=== PATIENT | female | born 1950 | race Caucasian/White ===

== ENCOUNTER 2018-10-12 12:49 | Emergency (ER) | payer MEDICARE ==
[~2018-10-12] VITALS: Ht 162.6 cm; Wt 65.8 kg
[2018-10-12] MEDS ORDERED: COZAAR 25 MG TA25 M2 PO (13:05)
[2018-10-12] MEDS ORDERED: NORCO 10-325 T1 EACH PO (13:05)
[2018-10-12 13:16] LABS: URINE BILIRUBIN NEGATIVE (Negative); URINE BLOOD NEGATIVE (Negative); URINE CLARITY CLEAR; URINE COLOR YELLOW; URINE GLUCOSE-RANDOM NEGATIVE (Negative); URINE KETONES NEGATIVE (Negative); URINE LEUKOCYTES-REFLEX NEGATIVE (Negative); URINE NITRITE-REFLEX NEGATIVE (Negative); URINE PROTEIN NEGATIVE (Negative); URINE SPECIFIC GRAVITY <= 1.005 (1.005-1.030); URINE UROBILINOGEN 0.2 E.U./dl (0.2-1.0)
[2018-10-12 13:28] LABS: ABSOLUTE BASOPHILS 0.1 thou/uL (0.0-0.2); ABSOLUTE EOSINOPHILS 0.1 thou/uL (0.0-0.7); ABSOLUTE LYMPHOCYTES 2.1 thou/uL (0.8-5.3); ABSOLUTE MONOCYTES 0.5 thou/uL (0.0-1.2); ABSOLUTE NEUTROPHILS 3.6 thou/uL (1.6-8.1); BASOPHILS 1.1 %; HEMATOCRIT 39.9 % (37.0-47.0); HEMOGLOBIN 13.3 gm/dL (12.0-15.0); MCH 29.4 pg (26.0-34.0); MCHC 33.2 g/dL (28.0-37.0); MCV 88.7 fL (80.0-100.0); MONOCYTES 7.7 %; MPV 7.8 fl. (7.2-11.1); NUCLEATED RBCS 0 /100WBC; PLATELET COUNT* 271 thou/uL (150-400); POLYS 57.2 %; RDW-CV 13.1 % (10.5-14.5); WBC 6.3 thou/uL (4.0-11.0)
[2018-10-12 13:56] LABS: ALBUMIN 3.7 g/dL (3.4-5.0); ALKALINE PHOSPHATASE 79 U/L (46-116); ANION GAP 7 mmol/L (7-16); BUN 15 mg/dL (7-18); CALCIUM 9.2 mg/dL (8.5-10.1); CHLORIDE 101 mmol/L (98-107); CO2 29 mmol/L (21-32); CREATININE 1.1 mg/dL (0.6-1.3); GLUCOSE 89 mg/dL (70-99); POTASSIUM 4.2 mmol/L (3.5-5.1); SGOT 19 U/L (15-37); SGPT 21 U/L (30-65); SODIUM 137 mmol/L (136-145); TOTAL BILIRUBIN 0.5 mg/dL (<0.1-1.0); TOTAL PROTEIN 7.7 g/dL (6.4-8.2); TROPONIN-I LEVEL <0.06 ng/mL (<0.06)
[2018-10-12] MEDS ORDERED: FLEXERIL PO (14:16)
[2018-10-12] MEDS ORDERED: MEDROLDOSEPACK PO (14:16)
[2018-10-12 14:31] VITALS: BP 190/85
--- NOTE | 2018-10-13 14:31 | EKG ---
[place] [address] ELECTROCARDIOGRAM REPORT Name: JOVANY MADRID Room: [facility]#: [id number] Admission: 10/12/18 Attend Phys: Discharge: 10/12/18 Date of : 50 Report #: [id number] THIS REPORT FOR: //name// [facility] ED Test Date: 2018-10-12 Test Time: 13:26:50 Pat Name: JOVANY MADRID Department: Room: Gender: F Broadcast Director Operations: DIANA : 1950 Requested By: Lucy Cunningham Order Number: [id number] MD: Adelso Arguello Measurements Intervals [place] Rate: 78 P: 58 UT: 129 QRS: 10 QRSD: 88 T: 20 QT: 373 QTc: 425 Interpretive Statements Sinus rhythm Biatrial enlargement Left ventricular hypertrophy No previous ECG available for comparison Electronically Signed On 10-13-2018 14:31:39 CDT by Adelso Arguello [email or web address] <ELECTRONICALLY SIGNED> By: Adelso Arguello MD, [facility] 10/13/18 1431 1326 [id number] Adelso Arguello MD, FACC /EPI
== END 2018-10-12 14:34 | disposition home or self-care (01) ==
LOC: M.ERS 12:49
PROVIDERS: Nurse Practitioner
DX: S16.1XXA Strain of muscle, fascia and tendon at neck level, initial encounter (principal); M25.512 Pain in left shoulder; I10 Essential (primary) hypertension; M79.7 Fibromyalgia; M19.90 Unspecified osteoarthritis, unspecified site; F32.9 Major depressive disorder, single episode, unspecified; Z88.7 Allergy status to serum and vaccine; Z88.0 Allergy status to penicillin; W18.39XA Other fall on same level, initial encounter; Y93.89 Activity, other specified; Y92.89 Other specified places as the place of occurrence of the external cause; Y99.8 Other external cause status

== ENCOUNTER → 2018-10-20 | Outpatient (CLI) | payer MEDICARE ==
[~2018-10-20] MED LIST: COZAAR 25 MG TA25 M2 PO; FLEXERIL PO; MEDROLDOSEPACK PO; NORCO 10-325 T1 EACH PO
== END ==
LOC: M.RAD 13:30
DX: M81.0 Age-related osteoporosis without current pathological fracture (principal); Z78.0 Asymptomatic menopausal state